=== PATIENT | male | born 1945 | race Caucasian/White ===

== ENCOUNTER 2019-07-27 10:58 | Observation (INO) ==
--- NOTE | 2019-07-27 11:34 | ERNOTE ---
Medical Problem HPI - Narrative Date of Service: 07/27/19 - General Chief Complaint: Nausea/Vomiting Time Seen by Provider: 07/27/19 11:25 Source: patient, family - Exam Limitations: no limitations - Immun/Allergies/Home Medications Immunizations: IMMUNIZATION HX Immunizations Up to Date Yes History of Influenza Vaccine No Hx Pneumococcal Vaccination No Allergies/Adverse Reactions: Allergies Penicillins Allergy (Intermediate, Verified 01/28/19 13:14) Hives Home Medications: HOME MEDICATIONS acetaminophen 650 mg tablet,extended release 1,300 mg PO BID tab 05/19/18 [Last Taken Unknown] sildenafil 25 mg tablet 25 mg PO DAILY PRN 05/19/18 [Last Taken Unknown] glimepiride 4 mg tablet 8 mg PO DAILY@0700 #180 tab 08/21/18 [Last Taken Unknown] albuterol sulfate 90 mcg/actuation aerosol inhaler See Rx Instructions IH .COMPLEX PRN #18 g 09/20/18 [Last Taken Unknown] fesoterodine 4 mg tablet,extended release 24 hr 4 mg PO DAILY #90 tab 09/20/18 [Last Taken Unknown] mirabegron 25 mg tablet,extended release 24 hr 25 mg PO DAILY #30 tab 01/28/19 [Last Taken Unknown] atorvastatin 10 mg tablet 10 mg PO HS #90 tab 05/14/19 [Last Taken Unknown] enalapril maleate 5 mg tablet See Rx Instructions .ROUTE .COMPLEX #90 tablet 05/14/19 [Last Taken Unknown] omeprazole 20 mg tablet,delayed release 20 mg PO DAILY #90 tab 05/14/19 [Last Taken Unknown] lancets 28 gauge See Dose Instructions .ROUTE .MEDSUPPLY #100 ea 05/23/19 [Last Taken Unknown] blood sugar diagnostic See Dose Instructions .ROUTE .MEDSUPPLY #100 ea 05/27/19 [Last Taken Unknown] tiotropium bromide 2.5 mcg/actuation mist for inhalation 2 inh IH DAILY #4 g 06/04/19 [Last Taken Unknown] metformin 850 mg tablet 850 mg PO BID #180 tab 06/25/19 [Last Taken Unknown] - History of Present History Narrative: 73 yr old male with history of aortic stenosis, COPD, DM, GERD, HTN, HLD, SHELIA with CPAP, renal failure, peptic ulcer, pneumonia and dyspnea on exertion presents with nausea and upper abdominal pain. This began at 2: 30 am this morning. States began after he got up to urinate. Denies any difficulty in urination. Denies any vomiting or diarrhea. Describes the abdominal pain as "crampy". Rates it 04/10. Denies any aggravating or alleviating factors. Reports associated chills, denies any known fever. Denies any new SOB. Denies any C/P. Last ate last evening at 7 pm. Date (Duration): 07/27/19 Time (Timing): 11:33 Timing: getting worse Severity: moderate Modifying Factors - (Improves): Present: other - nothing Modifying Factors - (Worsens): Present: other - nothing Review of Systems - Review of Systems Constitutional: Present: chills. Absent: recent illness, fever, diaphoresis, weakness EYE: Present: no symptoms reported ENT: Present: no symptoms reported Respiratory: Absent: shortness of breath - No new SOB, cough, wheezing Cardiology: Absent: chest pain Gastrointestinal/Abdominal: Present: nausea, abdominal pain - Upper abdominal pain . Absent: vomiting, diarrhea Genitourinary: Absent: frequency, pain, dysuria Musculoskeletal: Present: no symptoms reported Skin: Present: no symptoms reported Neurological: Present: no symptoms reported Endocrine: Present: no symptoms reported Hematologic/Lymphatic: Present: no symptoms reported Psych: Present: no symptoms reported All Other Systems: All systems neg except as marked Medical History (Last Reviewed 07/27/19 @ 11:57 by SARTHAK Cerda) Aortic stenosis Onset Date: Unknown Arthritis Onset Date: Unknown COPD (chronic obstructive pulmonary disease) Onset Date: 10/06/11 Carpal tunnel syndrome Onset Date: 10/2011 rt carpal/cubital tunnel Diabetes mellitus Onset Date: 2009 type 2 Diastolic dysfunction Onset Date: Unknown GERD (gastroesophageal reflux disease) Onset Date: Unknown History of echocardiogram Onset Date: 08/29/12 EF 60 mild MR, mild LVH, aortic sclerosis, mild pulmonary HTN, impaired relaxation diastolic dysfunction 06/12 normal EF, impaired relaxation diastolic dysfunction, mild-mod MR, AV peak 23mmHg, AV mean 12mmHg 08/2012 normal EF, mild LVH, impaired relaxation diastolic dys. mild , AV mean 13mmHg, trace MR [id number]/[id number]/14/11, 08/29/12 History of stress test Onset Date: 06/07/11 EF 61, normal EF normal wall motion, fixed inferior defect likely diaphragm attenuation Hyperlipidemia Onset Date: 04/30/12 Hypertension Onset Date: 04/30/12 Osteoarthritis Onset Date: 10/06/11 Peptic ulcer Onset Date: Unknown Pneumonia Onset Date: Unknown Rotator cuff tear Onset Date: Unknown Sleep apnea Onset Date: 11/06/12 Surgical History: Surgical History (Last Reviewed 07/27/19 @ 11:57 by SARTHAK Cerda) History of arthroscopic knee surgery Onset Date: 1997 right History of carpal tunnel release Onset Date: 10/18/11 right History of cataract surgery Onset Date: 2007 right, left History of colonoscopy Onset Date: 11/2009 Dr. Carrillo History of inguinal hernia repair Onset Date: 10/18/11 Tinguely-left w/mesh History of repair of rotator cuff Onset Date: 1997 History of shoulder replacement Onset Date: 09/2010 right S/P cubital tunnel release Onset Date: 10/18/11 right Family History: Family History (Last Reviewed 07/27/19 @ 11:57 by SARTHAK Cerda) Mother , 89 Hypertension Heart disease Father , 45 Cancer colon Social History: (Last Reviewed 07/27/19 @ 11:57 by SARTHAK Cerda) Social History: Marital status: household members: spouse current occupational status: retired Service: No Tobacco: Smoking Status: Former smoker Alcohol: alcohol intake: current Dietary Habits: caffeine: Yes Physical Exam - Physical Exam General Appearance: Present: wd/wn, alert, no apparent distress, other - chilling Head Exam: Present: normal inspection, no evidence of injury Eye Exam: Normal inspection: bilateral, PERRL: bilateral, EOMI: bilateral Ears, Nose, Throat: Present: normal ENT inspection, normal pharynx. Absent: dry mucous membranes Neck: Present: normal inspection, nontender Respiratory: Present: no respiratory distress, normal breath sounds, no accessory muscle use, lungs clear Cardiovascular/Chest: Present: regular rate, rhythm, no murmur Gastrointestinal/Abdominal: Present: nondistended, soft, tenderness - Mild tenderness epigastric region and umbilical hernia, abnormal bowel sounds - decreased bowel sounds Back Exam: Present: normal inspection, no CVA tenderness Extremity Exam: Present: normal inspection Neurological Exam: Present: alert, oriented, normal mood/affect, no motor/sensory deficits Skin Exam: Present: normal color, warm/dry Progress - Results and Orders Patient's Lab Results:: I have reviewed the patient's lab results. Results and Orders: Laboratory Tests 07/27/19 07/27/19 11:40 11:40 WBC 14.9 H RBC 4.38 L Hgb 13.3 L Hct 40.0 L Plt Count 269 Sodium 138 Potassium 4.4 Chloride 101 Carbon Dioxide 29.7 Anion Gap 11.7 BUN 17 Creatinine 1.16 Random Glucose 192 H Calcium 8.8 Total Bilirubin 0.7 AST 16 ALT 19 Alkaline Phosphatase 101 Amylase 49 Lipase 121 Laboratory Tests 07/27/19 12:11 Urine Color Yellow Urine Appearance Clear Urine pH 7.0 Ur Specific [place] 1.020 Urine Protein 100 H Urine Glucose (UA) 100 H Urine Ketones 5 Urine Blood Negative Urine Nitrate Negative Urine Bilirubin Negative Prot Sulfosalicylic Acd 3+ H Urine Urobilinogen Normal Ur Leukocyte Esterase Negative Urine RBC None seen Urine WBC 0-5 Ur Epithelial Cells 0-5 Urine Bacteria None seen Urine Culture Comments No culture indicated Laboratory Tests 07/27/19 11:46 Lactic Acid, Venous 2.3 H* - Vital Signs Patient's Vital Signs:: I have reviewed the patient's vital signs. Vital Signs: Vital Signs 07/27/19 11:14 Temperature 36.4 C Pulse Rate 107 H Respiratory Rate 22 H Blood Pressure 168/84 H O2 Sat by Pulse Oximetry 94 - X-Ray X-Ray #1 X-Ray: hand X-ray Comments: Chest x - ray IMPRESSION: NO ACUTE CARDIOPULMONARY ABNORMALITY IDENTIFIED. Electronically signed by Andrew Abbasi D.O.. - CT/Ultrasound CT/Ultrasound Narrative: CT Abd/pelvis Findings: Abdomen: The lung bases show chronic scarring and hyperinflation but otherwise are clear. The liver is mildly fatty infiltrated but without mass or ductal dilation. There is a large calcified gallstone seen in the gallbladder neck. The gallbladder is enlarged and inflamed with gallbladder wall thickening and pericholecystic fluid. Findings are consistent with acute cholecystitis. The spleen, pancreas and adrenal glands are normal. Nonobstructing right-sided intrarenal calcification is identified. The kidneys demonstrate normal contrast- enhancement and excretion and are without solid mass, left-sided nephrolithiasis or hydronephrosis. The stomach and small bowel loops are well-opacified and normal. No mesenteric or retroperitoneal lymphadenopathy. The appendix is normal. Pelvis: The bladder is well distended and normal. No free pelvic fluid. No inguinal or pelvic lymphadenopathy. There is diffuse atherosclerosis of the abdominal aorta and major branches. No aneurysmal dilation. There is extensive degenerative change of the spine, SI joints and bilateral hips. IMPRESSION: 1. ACUTE CHOLECYSTITIS. 2. MILD FATTY INFILTRATION OF THE LIVER. 3. ADDITIONAL COMMENTS AND DETAILS ABOVE. Electronically signed by Andrew Abbasi D.O.. - Progress/Reassessment Chief Complaint: Nausea/Vomiting Progress:: Improved Progress Note-Subjective: 07/27/19 16:00 Test results, etiology and treatment plan discussed with patient and . Patients nausea resolved and his pain improved with medications. Explained that he needs a surgical consultation. The case was staffed with Dr. Patterson who graciously came to the ER to see the patient and he plans surgical intervention. - Transfer of Care Physician Sign Out: Barbara Morton Brief History: 73 yr old male with sudden onset epigastric pain this morning at 2:30 am Receiving Physician: Srinath Patterson Expected Disposition: Admit Plan - Plan Plan: Turned care over to Dr. Patterson for surgical intervention and Observation admission. Departure Clinical Impression: Acute calculous cholecystitis COPD (chronic obstructive pulmonary disease) Qualifiers: COPD type: unspecified COPD Qualified Code(s): J44.9 - Chronic obstructive pulmonary disease, unspecified Hypertension Qualifiers: Hypertension type: essential hypertension Qualified Code(s): I10 - Essential (primary) hypertension Diabetes mellitus Qualifiers: Diabetes mellitus type: type 2 Diabetes mellitus correction insulin use: without remote computer terminal operator use Diabetes mellitus complication status: without complication Qualified Code(s): E11.9 - Type 2 diabetes mellitus without complications - Departure Disposition: Still a patient Condition: Good
[2019-07-27] MEDS ORDERED: NORMAL SALINE 1,000 ML IV ONE (11:36)
[2019-07-27 12:02] LABS: Hemoglobin 13.3 gm/dL (13.5-18.0); Mean Cell Volume 91.3 fl (78-100); Mean Corpuscular Hemoglobin 30.4 pg (27-31); Mean Corpuscular Hgb Conc 33.3 g/dl (32-36); Mean Platelet Volume 9.5 fl (8-11.3); Neutrophil # 12.9 K/mm3 (1.3-6.0); Neutrophil % 86.7 % (42-75.0); Platelet Count 269 K/mm3 (150-450); Red Blood Count 4.38 M/mm3 (4.7-6.0); Red Cell Distribution Width 12.8 % (11.5-14.0); White Blood Count 14.9 K/mm3 (4.0-10.5)
[2019-07-27 12:13] LABS: Albumin * 3.6 gm/dl (3.4-5.0); Anion Gap 11.7 mmol/L (6.8-13.8); BUN/Creatinine Ratio 14.7 (9.0-21.6); Bilirubin, Total 0.7 mg/dL (0.0-1.1); Ca. Corrected For Albumin 8.8 mg/dL (8.4-10.2); Calcium * 8.8 mg/dL (7.9-10.9); Carbon Dioxide 29.7 mmol/L (24-32.6); Potassium 4.4 mmol/L (3.4-4.6); Total Protein 7.1 gm/dL (6.2-8.2)
[2019-07-27] MEDS ORDERED: KETOROLAC TROMETHAMINE 30 MG/ML VIAL IV ONE (12:27)
[2019-07-27] MEDS ORDERED: ONDANSETRON HCL/PF 2 MG/ML VIAL IV ONE (12:28)
[2019-07-27 12:37] LABS: Urine Appearance Clear (CLEAR); Urine Bilirubin Negative (NEGATIVE); Urine Blood Negative /ul (NEGATIVE); Urine Color Yellow; Urine Ketone 5 mg/dL (NEGATIVE); Urine Protein 100 mg/dL (NEGATIVE); Urine Urobilinogen Normal (NORMAL)
[2019-07-27 12:38] LABS: Urine Bacteria None Seen; Urine Nitrite Negative (NEGATIVE); Urine RBC None Seen /hpf (0-5); Urine WBC 0-5 /hpf (0-5)
[2019-07-27] MEDS ORDERED: DIATRIZOATE MEGLUMINE, SODIUM 30 ML BTL PO ONE (12:44)
[2019-07-27] MEDS ORDERED: cefTRIAXone SODIUM 2,000 MG/100 ML BAG IV ONE (13:36)
[2019-07-27] MEDS ORDERED: ACETAMINOPHEN 500 MG TABLET PO ONE (14:12)
[2019-07-27] MEDS ORDERED: ACETAMINOPHEN 500 MG TABLET ONE (14:12)
[2019-07-27] MEDS ORDERED: ISOPROPYL ALCOHOL 480 APPL BTL MC ONE (15:47)
[2019-07-27] MEDS ORDERED: MUPIROCIN 22 APPL TUBE TP ONE ×2 (15:47→18:01)
[2019-07-27] MEDS ORDERED: BUPIVACAINE HCL/EPINEPHRINE 50 ML VIAL ONE (15:47)
--- NOTE | 2019-07-27 15:57 | HP ---
Chief Complaint - Chief Complaint Date of Service: 07/27/19 Time of Service: 15:43 Chief Complaint: abdominal pain, acute cholecystitis History of Present Illness: Woke up 0230 with RUQ pain. Has persisted with chills. Presented to ER. Found t o have elevated WBC, RUQ tenderness, and CT scan evidence of acute cholecystitis with cholelithiasis. Medical History (Last Reviewed 07/27/19 @ 15:44 by Srinath Patterson MD) Aortic stenosis Onset Date: Unknown Arthritis Onset Date: Unknown COPD (chronic obstructive pulmonary disease) Onset Date: 10/06/11 Carpal tunnel syndrome Onset Date: 10/2011 rt carpal/cubital tunnel Diabetes mellitus Onset Date: 2009 type 2 Diastolic dysfunction Onset Date: Unknown GERD (gastroesophageal reflux disease) Onset Date: Unknown History of echocardiogram Onset Date: 08/29/12 EF 60 mild MR, mild LVH, aortic sclerosis, mild pulmonary HTN, impaired relaxation diastolic dysfunction 06/12 normal EF, impaired relaxation diastolic dysfunction, mild-mod MR, AV peak 23mmHg, AV mean 12mmHg 08/2012 normal EF, mild LVH, impaired relaxation diastolic dys. mild , AV mean 13mmHg, trace MR [id number]/201406/14/11, 08/29/12 History of stress test Onset Date: 06/07/11 EF 61, normal EF normal wall motion, fixed inferior defect likely diaphragm attenuation Hyperlipidemia Onset Date: 04/30/12 Hypertension Onset Date: 04/30/12 Osteoarthritis Onset Date: 10/06/11 Peptic ulcer Onset Date: Unknown Pneumonia Onset Date: Unknown Rotator cuff tear Onset Date: Unknown Sleep apnea Onset Date: 11/06/12 Surgical History: Surgical History (Last Reviewed 07/27/19 @ 15:44 by Srinath Patterson MD) History of arthroscopic knee surgery Onset Date: 1997 right History of carpal tunnel release Onset Date: 10/18/11 right History of cataract surgery Onset Date: 2007 right, left History of colonoscopy Onset Date: 11/2009 Dr. Carrillo History of inguinal hernia repair Onset Date: 10/18/11 Tinguely-left w/mesh History of repair of rotator cuff Onset Date: 1997 History of shoulder replacement Onset Date: 09/2010 right S/P cubital tunnel release Onset Date: 10/18/11 right Family History: Family History (Last Reviewed 07/27/19 @ 15:44 by Srinath Patterson MD) Mother , 89 Heart disease Hypertension Father , 45 Cancer colon Social History: (Last Reviewed 07/27/19 @ 15:44 by Srinath Patterson MD) Social History: Marital status: household members: spouse current occupational status: retired Service: No Tobacco: Smoking Status: Former smoker Alcohol: alcohol intake: current Dietary Habits: caffeine: Yes Review Of Systems (GEN) - Review of Systems Generalized/Overall Review: Present: Chills, Fever. Absent: Diaphoresis EENTM: Present: No Symptoms Reported Respiratory: Present: Other - Has COPD and FRANCO, sleeps on his side Cardiac: Absent: Chest Pain, Edema, Palpitations Abdominal: Present: Other - RUQ pain and bloating, bowels regular, has chronic heartburn---more recently Genitourinary: Present: Nocturia - X 2-3. Absent: Dysuria Musculoskeletal: Present: Joint Pain - left shoulder and left thumb, also finger s Neurological: Present: No Symptoms Reported Skin: Present: No Symptoms Reported Endocrine: Present: Other - has diabetes Immunizations: IMMUNIZATION HX Immunizations Up to Date Yes History of Influenza Vaccine No Hx Pneumococcal Vaccination No Allergies/Adverse Reactions: Allergies Allergy/AdvReac Type Severity Reaction Status Date / Time Penicillins Allergy Intermediate Hives Verified 01/28/19 13:14 Home Medications: HOME MEDICATIONS acetaminophen 650 mg tablet,extended release 1,300 mg PO BID tab 05/19/18 [Last Taken Unknown] sildenafil 25 mg tablet 25 mg PO DAILY PRN 05/19/18 [Last Taken Unknown] glimepiride 4 mg tablet 8 mg PO DAILY@0700 #180 tab 08/21/18 [Last Taken Unknown] albuterol sulfate 90 mcg/actuation aerosol inhaler See Rx Instructions IH .COMPLEX PRN #18 g 09/20/18 [Last Taken Unknown] fesoterodine 4 mg tablet,extended release 24 hr 4 mg PO DAILY #90 tab 09/20/18 [Last Taken Unknown] mirabegron 25 mg tablet,extended release 24 hr 25 mg PO DAILY #30 tab 01/28/19 [Last Taken Unknown] atorvastatin 10 mg tablet 10 mg PO HS #90 tab 05/14/19 [Last Taken Unknown] enalapril maleate 5 mg tablet See Rx Instructions .ROUTE .COMPLEX #90 tablet 05/14/19 [Last Taken Unknown] omeprazole 20 mg tablet,delayed release 20 mg PO DAILY #90 tab 05/14/19 [Last Taken Unknown] lancets 28 gauge See Dose Instructions .ROUTE .MEDSUPPLY #100 ea 05/23/19 [Last Taken Unknown] blood sugar diagnostic See Dose Instructions .ROUTE .MEDSUPPLY #100 ea 05/27/19 [Last Taken Unknown] tiotropium bromide 2.5 mcg/actuation mist for inhalation 2 inh IH DAILY #4 g 06/04/19 [Last Taken Unknown] metformin 850 mg tablet 850 mg PO BID #180 tab 06/25/19 [Last Taken Unknown] Exam - Exam Vital Signs: Vital Signs - Last Taken Temp 38.6 C H 07/27/19 14:41 Pulse 104 H 07/27/19 14:41 Resp 16 07/27/19 14:41 BP 129/65 07/27/19 14:41 Pulse Ox 91 L 07/27/19 14:41 Constitutional: Present: Alert, Oriented x3, Cooperative, Mild distress, Obese ENT Exam: Present: normal ENT inspection, other - plethoric, Mallampati 3 Eye Exam: bilateral eye: normal inspection Neck: Present: normal inspection, other - short thick neck Back Exam: Present: other - denies back pain Breasts: Present: Exam deferred Respiratory: Present: lungs clear, other - increased AP diameter Cardiovascular/Chest: Present: normal peripheral pulses, regular rate, rhythm, other - harsh systolic murmur Abdomen: Present: positive Andre sign - very tympanitic, distended /Rectal: Present: Exam deferred Extremity: Present: normal range of motion, no calf tenderness Skin Exam: Present: warm/dry Neurologic: Present: senior instructor II-XII nml as tested, normal cerebellar test, alert, normal mood/affect, oriented x 3 Appearance: Present: appropriate appearance, appropriate insight, neat Eye contact: Present: cooperative, good eye contact, normal speech Thoughts: Present: normal thought pattern Diagnostic Studies: Abnormal Lab Results 07/27/19 07/27/19 07/27/19 Range/Units 11:40 11:40 11:46 WBC 14.9 H (4.0-10.5) K/mm3 RBC 4.38 L (4.7-6.0) M/mm3 Hgb 13.3 L (13.5-18.0) gm/dL Hct 40.0 L (42.0-52.0) % Immature Gran # (Auto) 0.04 H (0.000-0.0310) K/mm3 Neutrophils % 86.7 H (42-75.0) % Lymphocytes % 5.0 L (20-51) % Neutrophils # 12.9 H (1.3-6.0) K/mm3 Lymphocytes # 0.75 L (1.5-3.5) k/mm3 Monocytes # 1.2 H (0.0-1.0) k/mm3 Random Glucose 192 H (70-110) mg/dL Lactic Acid, Venous 2.3 H* (0.4-2.0) mmol/L Urine Protein (NEGATIVE) mg/dL Urine Glucose (UA) (NEGATIVE) mg/dL Prot Sulfosalicylic Acd (0) mg/dL 07/27/19 Range/Units 12:11 WBC (4.0-10.5) K/mm3 RBC (4.7-6.0) M/mm3 Hgb (13.5-18.0) gm/dL Hct (42.0-52.0) % Immature Gran # (Auto) (0.000-0.0310) K/mm3 Neutrophils % (42-75.0) % Lymphocytes % (20-51) % Neutrophils # (1.3-6.0) K/mm3 Lymphocytes # (1.5-3.5) k/mm3 Monocytes # (0.0-1.0) k/mm3 Random Glucose (70-110) mg/dL Lactic Acid, Venous (0.4-2.0) mmol/L Urine Protein 100 H (NEGATIVE) mg/dL Urine Glucose (UA) 100 H (NEGATIVE) mg/dL Prot Sulfosalicylic Acd 3+ H (0) mg/dL Laboratory Results WBC 14.9 K/mm3 (4.0-10.5) H 07/27/19 11:40 RBC 4.38 M/mm3 (4.7-6.0) L 07/27/19 11:40 Hgb 13.3 gm/dL (13.5-18.0) L 07/27/19 11:40 Hct 40.0 % (42.0-52.0) L 07/27/19 11:40 MCV 91.3 fl (78-100) 07/27/19 11:40 MCH 30.4 pg (27-31) 07/27/19 11:40 MCHC 33.3 g/dl (32-36) 07/27/19 11:40 RDW 12.8 % (11.5-14.0) 07/27/19 11:40 Plt Count 269 K/mm3 (150-450) 07/27/19 11:40 MPV 9.5 fl (8-11.3) 07/27/19 11:40 Immature Gran % (Auto) 0.30 % (0.001-0.429) 07/27/19 11:40 Immature Gran # (Auto) 0.04 K/mm3 (0.000-0.0310) H 07/27/19 11:40 Neutrophils % 86.7 % (42-75.0) H 07/27/19 11:40 Lymphocytes % 5.0 % (20-51) L 07/27/19 11:40 Monocytes % 7.9 % (0.0-9) 07/27/19 11:40 Eosinophils % 0.0 % (0.0-3.0) 07/27/19 11:40 Basophils % 0.1 % (0.0-1.0) 07/27/19 11:40 Nucleated RBC % 0.0 k/mm3 (0-1) 07/27/19 11:40 Neutrophils # 12.9 K/mm3 (1.3-6.0) H 07/27/19 11:40 Lymphocytes # 0.75 k/mm3 (1.5-3.5) L 07/27/19 11:40 Monocytes # 1.2 k/mm3 (0.0-1.0) H 07/27/19 11:40 Eosinophils # 0.0 k/mm3 (0.0-0.7) 07/27/19 11:40 Absolute Basophils 0.0 k/mm3 (0.0-0.1) 07/27/19 11:40 Sodium 138 mmol/L (132-142) 07/27/19 11:40 Plasma Sodium 139 mmol/L (130-142) 07/27/19 11:40 Potassium 4.4 mmol/L (3.4-4.6) 07/27/19 11:40 Chloride 101 mmol/L (97-106) 07/27/19 11:40 Carbon Dioxide 29.7 mmol/L (24-32.6) 07/27/19 11:40 Anion Gap 11.7 mmol/L (6.8-13.8) 07/27/19 11:40 BUN 17 mg/dL (6-23) 07/27/19 11:40 Creatinine 1.16 mg/dL (0.4-1.4) 07/27/19 11:40 Est GFR (Non-Af Amer) 65 mL/min (60-130) 07/27/19 11:40 BUN/Creatinine Ratio 14.7 (9.0-21.6) 07/27/19 11:40 Random Glucose 192 mg/dL (70-110) H 07/27/19 11:40 Lactic Acid, Venous 2.3 mmol/L (0.4-2.0) H* 07/27/19 11:46 Calcium 8.8 mg/dL (7.9-10.9) 07/27/19 11:40 Calcium Adj for Albumin 8.8 mg/dL (8.4-10.2) 07/27/19 11:40 Total Bilirubin 0.7 mg/dL (0.0-1.1) 07/27/19 11:40 AST 16 U/L (0-48) 07/27/19 11:40 ALT 19 U/L (19-67) 07/27/19 11:40 Alkaline Phosphatase 101 U/L (50-170) 07/27/19 11:40 Total Protein 7.1 gm/dL (6.2-8.2) 07/27/19 11:40 Albumin 3.6 gm/dl (3.4-5.0) 07/27/19 11:40 Amylase 49 U/L (25-115) 07/27/19 11:40 Lipase 121 U/L (73-393) 07/27/19 11:40 Urine Color Yellow 07/27/19 12:11 Urine Appearance Clear (CLEAR) 07/27/19 12:11 Urine pH 7.0 pH (5.0-7.0) 07/27/19 12:11 Ur Specific [place] 1.020 SP.GR. (1.005-1.030) 07/27/19 12:11 Urine Protein 100 mg/dL (NEGATIVE) H 07/27/19 12:11 Urine Glucose (UA) 100 mg/dL (NEGATIVE) H 07/27/19 12:11 Urine Ketones 5 mg/dL (NEGATIVE) 07/27/19 12:11 Urine Blood Negative /ul (NEGATIVE) 07/27/19 12:11 Urine Nitrate Negative (NEGATIVE) 07/27/19 12:11 Urine Bilirubin Negative mg/dl (NEGATIVE) 07/27/19 12:11 Prot Sulfosalicylic Acd 3+ mg/dL (0) H 07/27/19 12:11 Urine Urobilinogen Normal EU/dl (NORMAL) 07/27/19 12:11 Ur Leukocyte Esterase Negative /ul (NEGATIVE) 07/27/19 12:11 Urine RBC None seen /hpf (0-5) 07/27/19 12:11 Urine WBC 0-5 /hpf (0-5) 07/27/19 12:11 Ur Epithelial Cells 0-5 /hpf (0-5) 07/27/19 12:11 Urine Bacteria None seen (NONE) 07/27/19 12:11 Urine Culture Comments No culture indicated 07/27/19 12:11 CT shows acute cholecystitis with cholelithiasis Assessment/Plan - Assessment/Plan (1) Acute calculous cholecystitis Assessment: Pamphlet on GB disease and cholecystectomy reviewed with him and his . Rationale for cholecystectomy explained along with the risks and possible complications. Expected post op course explained. After and interactive discussion, his questions were answered to his apparent satisfaction and he has given informed consent for cholecystectomy (laparoscopic or open) SCD's, chlorhexidine wipes, IV Levaquin due to PCN allergy. Problem: Acute (2) Diabetes mellitus Assessment: Type 2, will monitor Problem: Chronic Qualifiers: (3) Aortic stenosis Assessment: Hemodynamically stable Problem: Chronic Qualifiers: (4) COPD (chronic obstructive pulmonary disease) Assessment: Sa02 is around 90 He has distended gastric bubble which contributes---will decompress. Problem: Chronic Qualifiers: (5) Hyperlipemia Problem: Chronic Qualifiers: (6) Hypertension Problem: Chronic Qualifiers:
[2019-07-27] MEDS ORDERED: LEVOFLOXACIN IN DEXTROSE 5 % 750 MG/150 ML BAG IV ONE (16:00)
--- NOTE | 2019-07-27 16:02 | ANES ---
Anesthesia Pre Procedure Eval Vitals/Labs: Last Vital Signs Temp 38.6 C H 07/27/19 14:41 Pulse 104 H 07/27/19 14:41 Resp 16 07/27/19 14:41 BP 129/65 07/27/19 14:41 Pulse Ox 91 L 07/27/19 14:41 HOME MEDICATIONS acetaminophen 650 mg tablet,extended release 1,300 mg PO BID tab 05/19/18 [Last Taken Unknown] sildenafil 25 mg tablet 25 mg PO DAILY PRN 05/19/18 [Last Taken Unknown] glimepiride 4 mg tablet 8 mg PO DAILY@0700 #180 tab 08/21/18 [Last Taken Unknown] albuterol sulfate 90 mcg/actuation aerosol inhaler See Rx Instructions IH .COMPLEX PRN #18 g 09/20/18 [Last Taken Unknown] fesoterodine 4 mg tablet,extended release 24 hr 4 mg PO DAILY #90 tab 09/20/18 [Last Taken Unknown] mirabegron 25 mg tablet,extended release 24 hr 25 mg PO DAILY #30 tab 01/28/19 [Last Taken Unknown] atorvastatin 10 mg tablet 10 mg PO HS #90 tab 05/14/19 [Last Taken Unknown] enalapril maleate 5 mg tablet See Rx Instructions .ROUTE .COMPLEX #90 tablet 05/14/19 [Last Taken Unknown] omeprazole 20 mg tablet,delayed release 20 mg PO DAILY #90 tab 05/14/19 [Last Taken Unknown] lancets 28 gauge See Dose Instructions .ROUTE .MEDSUPPLY #100 ea 05/23/19 [Last Taken Unknown] blood sugar diagnostic See Dose Instructions .ROUTE .MEDSUPPLY #100 ea 05/27/19 [Last Taken Unknown] tiotropium bromide 2.5 mcg/actuation mist for inhalation 2 inh IH DAILY #4 g 06/04/19 [Last Taken Unknown] metformin 850 mg tablet 850 mg PO BID #180 tab 06/25/19 [Last Taken Unknown] Allergies/Adverse Reactions: Allergies Allergy/AdvReac Type Severity Reaction Status Date / Time Penicillins Allergy Intermediate Hives Verified 01/28/19 13:14 - Planned Procedure Planned Procedure: acute cholecystitis Medication List Reviewed:: Yes Allergies Verified: Yes Medical History (Last Reviewed 07/27/19 @ 15:56 by Navarro Silver CRNA) Aortic stenosis Onset Date: Unknown Arthritis Onset Date: Unknown COPD (chronic obstructive pulmonary disease) Onset Date: 10/06/11 Carpal tunnel syndrome Onset Date: 10/2011 rt carpal/cubital tunnel Diabetes mellitus Onset Date: 2009 type 2 Diastolic dysfunction Onset Date: Unknown GERD (gastroesophageal reflux disease) Onset Date: Unknown History of echocardiogram Onset Date: 08/29/12 EF 60 mild MR, mild LVH, aortic sclerosis, mild pulmonary HTN, impaired relaxation diastolic dysfunction 06/12 normal EF, impaired relaxation diastolic dysfunction, mild-mod MR, AV peak 23mmHg, AV mean 12mmHg 08/2012 normal EF, mild LVH, impaired relaxation diastolic dys. mild , AV mean 13mmHg, trace MR 09/201406/14/11, 08/29/12 History of stress test Onset Date: 06/07/11 EF 61, normal EF normal wall motion, fixed inferior defect likely diaphragm attenuation Hyperlipidemia Onset Date: 04/30/12 Hypertension Onset Date: 04/30/12 Osteoarthritis Onset Date: 10/06/11 Peptic ulcer Onset Date: Unknown Pneumonia Onset Date: Unknown Rotator cuff tear Onset Date: Unknown Sleep apnea Onset Date: 11/06/12 Surgical History (Last Reviewed 07/27/19 @ 15:56 by Navarro Silver CRNA) History of arthroscopic knee surgery Onset Date: 1997 right History of carpal tunnel release Onset Date: 10/18/11 right History of cataract surgery Onset Date: 2007 right, left History of colonoscopy Onset Date: 11/2009 Dr. Carrillo History of inguinal hernia repair Onset Date: 10/18/11 Tinguely-left w/mesh History of repair of rotator cuff Onset Date: 1997 History of shoulder replacement Onset Date: 09/2010 right S/P cubital tunnel release Onset Date: 10/18/11 right Family History (Last Reviewed 07/27/19 @ 15:56 by Navarro Silver CRNA) Mother , 89 Heart disease Hypertension Father , 45 Cancer colon - Family Anesthesia History Family History:: no untoward family reactions to anesthesia, no familial bleeding tendencies, no family history of clotting disorders, no family history of premature - Airway/Neck/Teeth Within Normal Limits:: Yes Neck Exam: full range of motion Mallampatti Score: 3 Thyromental (T-M) distance: > 6 cm Mandibulo Hyoid distance: > 3 cm - Respiratory Respiratory History: COPD Respiratory Physical: decreased breath sounds, rhonchi Smoking Status: Former smoker - quit 20 years Sleep Apnea currently treated: No Sleep Apnea by current assessment: No - possible by anatomy, history not significant Discussed Risks/Treatment of SHELIA: Yes - Cardiovascular Cardiac History: hypertension, hyperlipidemia Tolerate Activity: Poor Heart Sounds: S1 & S2, Regular - Anesthesia Assessment and Plan Narrative: Multiple issues including aortic stenosis, Sa)2 80s-90 on room air. Discussed p ossibility of post operative ETT and Heart, Lung and Kidney issues. ASA Class: PS, IV - SaO2 80s to 90 on room air in sitting position., E Anesthesia Type Plan: General ET Planned difficult intubation/equipment available: Yes
[2019-07-27] MEDS ORDERED: ONDANSETRON HCL/PF 2 MG/ML VIAL ONE (16:05)
[2019-07-27] MEDS ORDERED: PROPOFOL VIAL IV ONE (16:06)
[2019-07-27] MEDS ORDERED: KETOROLAC TROMETHAMINE 30 MG/ML VIAL ONE (16:06)
[2019-07-27] MEDS ORDERED: DEXAMETHASONE SODIUM PHOSPHATE 10 MG/ML VIAL ONE (16:06)
[2019-07-27] MEDS ORDERED: SUCCINYLCHOLINE CHLORIDE 20 MG/ML VIAL ONE (16:06)
[2019-07-27] MEDS ORDERED: fentaNYL CITRATE/PF 50 MCG/ML AMPUL ONE (16:07)
[2019-07-27] MEDS ORDERED: LIDOCAINE HCL 20 ML VIAL ONE (16:23)
[2019-07-27] MEDS ORDERED: NEOSTIGMINE METHYLSULFATE 1 MG/ML VIAL ONE (16:23)
[2019-07-27] MEDS ORDERED: ROCURONIUM BROMIDE 10 MG/ML VIAL ONE (16:23)
[2019-07-27] MEDS ORDERED: GLYCOPYRROLATE 0.2 MG/ML VIAL ONE (16:23)
[2019-07-27] MEDS ORDERED: BUPIVACAINE HCL/EPINEPHRINE 50 ML VIAL IJ ONE (17:59)
--- NOTE | 2019-07-27 18:17 | ANES ---
Post Anesthesia Discharge - Transfer of Care Transfer of Care handoff given to nurse: Yes - Discharge from PACU Discharge from PACU when meets criteria: Yes - Denies discomfort.
[2019-07-27] MEDS ORDERED: oxyCODONE HCL/ACETAMINOPHEN 1 TAB TABLET PO PRN (18:25)
--- NOTE | 2019-07-27 18:35 | ANES ---
Post Anesthesia Assessment - Vital Signs Vitals: Last Vital Signs Temp 38.4 C H 07/27/19 18:30 Pulse 112 H 07/27/19 18:30 Resp 22 H 07/27/19 18:30 BP 137/60 07/27/19 18:30 Pulse Ox 92 L 07/27/19 18:30 Airway Patency: Normal - Mental Status Level Of Consciousness: Awake, Alert, Appropriate - Pain Level Pain Score: 0 - N/V Assessment Nausea/Vomiting Presence: None Dehydration:: No
--- NOTE | 2019-07-27 18:47 | OR ---
Operative Report - Dictated Report Narrative: DATE OF OPERATION: 07/27/2019 PREOPERATIVE DIAGNOSIS: Acute cholecystitis and cholelithiasis, umbilical hernia POSTOPERATIVE DIAGNOSIS: Same (pathology pending) OPERATION: Laparoscopic cholecystectomy and incidental repair of umbilical hernia SURGEON: DEEPIKA Patterson MD ANESTHESIA: General endotracheal Navarro Silver CRNA INDICATIONS FOR PROCEDURE: The patient is a 73-year-old male who awoke at 230 this morning with severe right upper quadrant pain. The pain has persisted. He presented to the emergency room and was found to be tender in the right upper quadrant with elevated white blood cell count and CT scan evidence of acute cholecystitis with cholelithiasis. He has an umbilical hernia FINDINGS: Severe acute cholecystitis with cholelithiasis. Umbilical hernia with 2 cm fascial defect NARRATIVE OF PROCEDURE: The patient was identified preoperatively. Prior to the administration of anesthetic a multidisciplinary timeout observed. With the patient in the supine position, SCDs were placed, 750 mg of IV Levaquin administered, and general endotracheal anesthetic administered. The patient's abdomen was prepped with Betadine solution and a generous operating field outlined with 4 sterile towels. The remainder the patient was covered with a [facility] disposable drape. An infraumbilical skin incision was made. Dissection was carried along the umbilical stalk until the fascia of the linea alba was encountered. There was a properitoneal fat-containing umbilical hernia which was gradually dissected free from the undersurface of the umbilical skin to clean fascia on all margins. The sac and fat were amputated with electrocautery to allow entry into the abdomen under direct vision. A Hussan cannula was placed, and the abdomen insufflated with CO2. The laparoscopic camera was introduced and the abdomen briefly explored. Those portions of the liver, stomach, colon, and omentum visualized appeared normal. The apex of an acutely inflamed gallbladder was visible. Next under direct vision 3 additional working ports were inserted through separate skin incisions, one in the subxiphoid, one in the right upper quadrant, and one in the right flank. The gallbladder was decompressed with a needle until it was soft enough to be grasped. The apex of the gallbladder was grasped at the puncture site and retracted cephalad. There were adhesions to the body and neck of the gallbladder which were gradually lysed by blunt and electrocautery dissection down to the expected location of the cystic duct. The liver was also adherent to the duodenum which was gradually swept back to its normal position. The cystic duct was dissected free for a sufficient distance for confident identification. It was doubly clipped and divided. The cystic artery was identified doubly clipped and divided. The gallbladder was then removed from the liver bed by retrograde electrocautery dissection. There was severe inflammation and edema. Prior to severing the last attachments of the gallbladder the liver bed was inspected and found to be hemostatic with no evidence of bile leak. The previously placed clips were seen to be intact. The right upper quadrant was suctioned clean. The last attachments of the gallbladder were divided. It was placed in an Endobag and parked in the right upper quadrant. The smaller working ports were withdrawn under direct vision to ensure entry site hemostasis. The gallbladder was removed in conjunction with the Hussan cannula. The pneumoperitoneum was allowed to escape, and after receiving a correct sponge needle and instrument count attention was turned to closing the abdomen. The fascia and peritoneum at the umbilicus were approximated with interrupted sutures of #1 Vicryl so as to also repair the umbilical hernia. Skin incisions were approximated with interrupted vertical mattress sutures of 4-0 nylon. The operative sites were washed and dried. Dressings of Bactroban ointment and large Band-Aids were applied to the small port sites. The umbilical incision was dressed with Bactroban ointment, 2 x 2, large Band-Aid and Medipore tape. The operative procedure was terminated at this point. The patient tolerated the anesthetic and procedure well without complication. There was no measurable blood loss. The gallbladder was submitted to pathology. 0.5% Marcaine with epinephrine was used for local anesthetic infiltration. The patient was transferred to the recovery room awake, extubated, and in stable condition. He will require admission to observation status due to his COPD with need for supplemental oxygen. Reviewed and electronically signed
[2019-07-27] MEDS: RINGER'S SOLUTION,LACTATED 1,000 ML IV PRN (18:56)
[2019-07-28] MEDS: RINGER'S SOLUTION,LACTATED 1,000 ML IV PRN (04:05)
[2019-07-28] MEDS ORDERED: PANTOPRAZOLE SODIUM 40 MG in NORMAL SALINE 100 ML IV ONE (05:00)
[2019-07-28] MEDS ORDERED: RINGER'S SOLUTION,LACTATED 1,000 ML IV PRN (06:00)
[2019-07-28] MEDS ORDERED: FLU VACC QS2019-20(6MOS UP)/PF 60 MCG/0.5 ML SYRINGE IM ONE (09:00)
[2019-07-28] MEDS ORDERED: GLIMEPIRIDE 4 MG TABLET PO SCH (09:00)
[2019-07-28] MEDS ORDERED: ENALAPRIL MALEATE 5 MG TABLET PO SCH (09:00)
[2019-07-28] MEDS ORDERED: BISACODYL 5 MG TABLET.DR PO ONE (09:13)
--- NOTE | 2019-07-28 09:21 | DS ---
(1) Acute calculous cholecystitis Problem: Acute (2) Diabetes mellitus Problem: Chronic Qualifiers: Diabetes mellitus type: type 2 Diabetes mellitus intermediate manager insulin use: without senior living use Diabetes mellitus complication status: without complication Qualified Code(s): E11.9 - Type 2 diabetes mellitus without complications (3) Aortic stenosis Problem: Chronic Qualifiers: (4) COPD (chronic obstructive pulmonary disease) Problem: Chronic Qualifiers: COPD type: unspecified COPD Qualified Code(s): J44.9 - Chronic obstructive pulmonary disease, unspecified (5) Hyperlipemia Problem: Chronic Qualifiers: (6) Hypertension Problem: Chronic Qualifiers: Hypertension type: essential hypertension Qualified Code(s): I10 - Essential (primary) hypertension Date of Discharge:: 07/28/19 Description of Stay: He underwent a laparoscopic cholecystectomy for severe acute cholecystitis with cholelithiasis. SCDs and early ambulation were used for VTE prophylaxis. He received IV Levaquin due to a penicillin allergy and chlorhexidine wipes were used. Postoperatively his vital signs remained normal he required supplemental O2 initially due to his COPD. His dressings remain dry. He was able to tolerate advanced diet. He had minimal discomfort. Did require straight cath x1 due to inability to void. He was able to ambulate without assistance. Plan is to discharge home. Instructions were given (not to lift and not to drive). He is supposed to keep his dressings dry for 48 hours but then may shower and change the dressings daily or as needed. He has phone numbers to call if needed for questions or concerns. He is to contact the office tomorrow for a one-week follow-up appointment. He also has a regularly scheduled appointment with Dr. Orosco tomorrow. He is to resume the medications as listed in the history and physical exam. He prefers OTC Tylenol for discomfort Procedures Performed: see notes below - Laparoscopic cholecystectomy Results and Findings: Lab Pending Results 07/27/19 11:40: WBC 14.9 H, RBC 4.38 L, Hgb 13.3 L, Hct 40.0 L, MCV 91.3, MCH 30.4, MCHC 33.3, RDW 12.8, Plt Count 269, MPV 9.5, Immature Gran % (Auto) 0.30, Immature Gran # (Auto) 0.04 H, Neutrophils % 86.7 H, Lymphocytes % 5.0 L, Monocytes % 7.9, Eosinophils % 0.0, Basophils % 0.1, Nucleated RBC % 0.0, Neutrophils # 12.9 H, Lymphocytes # 0.75 L, Monocytes # 1.2 H, Eosinophils # 0.0, Absolute Basophils 0.0 07/27/19 11:40: Sodium 138, Plasma Sodium 139, Potassium 4.4, Chloride 101, Carbon Dioxide 29.7, Anion Gap 11.7, BUN 17, Creatinine 1.16, Est GFR (Non-Af Amer) 65, BUN/Creatinine Ratio 14.7, Random Glucose 192 H, Calcium 8.8, Calcium Adj for Albumin 8.8, Total Bilirubin 0.7, AST 16, ALT 19, Alkaline Phosphatase 101, Total Protein 7.1, Albumin 3.6, Amylase 49, Lipase 121 07/27/19 11:46: Lactic Acid, Venous 2.3 H* 07/27/19 12:11: Urine Color Yellow, Urine Appearance Clear, Urine pH 7.0, Ur Specific [place] 1.020, Urine Protein 100 H, Urine Glucose (UA) 100 H, Urine Ketones 5, Urine Blood Negative, Urine Nitrate Negative, Urine Bilirubin Negative, Prot Sulfosalicylic Acd 3+ H, Urine Urobilinogen Normal, Ur Leukocyte Esterase Negative, Urine RBC None seen, Urine WBC 0-5, Ur Epithelial Cells 0-5, Urine Bacteria None seen, Urine Culture Comments No culture indicated 07/27/19 15:53: Lactic Acid, Venous 2.0 Discharge Location: Home Disposition: Home self-care Condition: Good Discharge Activity: Activity as tolerated, No Lifting Discharge Diet: Consistent carbs Referrals: Jorge Orosco MD [Primary Care Provider] - Problem Oriented Discharge Instructions to Patient/Family: Laparoscopic Cholecystectomy, Care After Additional Patient Instructions (free text): He is to call [phone] tomorrow to make a 1 week follow-up appointment. He does have a scheduled appointment with Dr. Orosco tomorrow as well. Complete Home Medications List: Complete Home Medication List: acetaminophen 650 mg tablet,extended release 1,300 mg PO BID tab 05/19/18 sildenafil 25 mg tablet 25 mg PO DAILY PRN 05/19/18 albuterol sulfate 90 mcg/actuation aerosol inhaler See Rx Instructions IH .COMPLEX PRN #18 g 09/20/18 fesoterodine 4 mg tablet,extended release 24 hr 4 mg PO DAILY #90 tab 09/20/18 mirabegron 25 mg tablet,extended release 24 hr 25 mg PO DAILY #30 tab 01/28/19 atorvastatin 10 mg tablet 10 mg PO HS #90 tab 05/14/19 omeprazole 20 mg tablet,delayed release 20 mg PO DAILY #90 tab 05/14/19 lancets 28 gauge See Dose Instructions .ROUTE .MEDSUPPLY #100 ea 05/23/19 blood sugar diagnostic See Dose Instructions .ROUTE .MEDSUPPLY #100 ea 05/27/19 tiotropium bromide 2.5 mcg/actuation mist for inhalation 2 inh IH DAILY #4 g 06/04/19 metformin 850 mg tablet 850 mg PO BID #180 tab 06/25/19 Enalapril Maleate [Vasotec] 1 tab PO DAILY 07/27/19 Glimepiride [Amaryl] 8 mg PO DAILY 07/27/19
[2019-07-28] MEDS ORDERED: ACETAMINOPHEN 325 MG TABLET PO ONE (09:22)
[2019-07-28 09:59] VITALS: BP 123/75
== END 2019-07-28 10:45 | disposition home or self-care (01) ==
LOC: ER 10:58 → MS 10:58
PROVIDERS: ADMIT Surgery; ATTEND Surgery
DX: I35.0 Nonrheumatic aortic (valve) stenosis; K80.00 Calculus of gallbladder with acute cholecystitis without obstruction; E11.9 Type 2 diabetes mellitus without complications; I10 Essential (primary) hypertension; K42.9 Umbilical hernia without obstruction or gangrene; Z87.891 Personal history of nicotine dependence; Z79.84 Long term (current) use of oral hypoglycemic drugs; Z23 Encounter for immunization
CPT/HCPCS: 36415; 71020; 71046; 74177; 80053; 81001; 82150; 83605; 83690; 85025; 87040; 88304; 90686; 99285; G0008; G0378; J2405; Q9963; Q9967